=== PATIENT | female | born 1965 | race Caucasian/White ===

== ENCOUNTER → 2024-09-05 14:02 | Outpatient (CLI) | payer OTHER, SELFPAY ==
--- NOTE | 2024-09-05 14:04 | DI.RAD.S_ITS ---
PROCEDURE: XR LUMBAR SPINE 2-3V INDICATIONS: Ground level fall TECHNIQUE: 3 views of the lumbar spine were acquired. COMPARISON: None. FINDINGS: Bones: 5 [id number] vertebrae are present. There is normal bony alignment. Mild degenerative endplate changes are noted throughout lumbar spine. No vertebral body compression fractures. No suspicious bony lesions. Soft tissues: Overlying bowel gas pattern is normal. No suspicious soft tissue calcifications. IMPRESSION: No acute vertebral body compression fracture or spondylolisthesis. Mild spondylitic changes in lumbar spine. Dictated by: William Hercules M.D. on 09/05/2024 at 14:39 Approved by: William Hercules M.D. on 09/05/2024 at 14:42
--- NOTE | 2024-09-05 14:04 | DI.RAD.S_ITS ---
PROCEDURE: XR KNEE RT 3V INDICATIONS: Ground level fall TECHNIQUE: 3 views of the knee were acquired. COMPARISON: None. FINDINGS: Bones: No fractures or dislocations. Mild tricompartmental osteoarthritis is seen. No significant patellar subluxation. No suspicious bony lesions. Soft tissues: No joint effusion. No suspicious soft tissue calcifications. IMPRESSION: No acute right knee fracture or dislocation. No significant joint effusion. Mild tricompartmental osteoarthritis. Dictated by: William Hercules M.D. on 09/05/2024 at 14:38 Approved by: William Hercules M.D. on 09/05/2024 at 14:39
== END ==
PROVIDERS: PCP Student in an Organized Health Care Education/Training Program; Referring Provider Physician Assistant; Visit Provider Physician Assistant
DX: S33.5XXA Sprain of ligaments of lumbar spine, initial encounter (principal); S83.90XA Sprain of unspecified site of unspecified knee, initial encounter; M17.11 Unilateral primary osteoarthritis, right knee; M47.816 Spondylosis without myelopathy or radiculopathy, lumbar region; W18.30XA Fall on same level, unspecified, initial encounter
CPT/HCPCS: 72100; 73562